=== PATIENT | female | born 2000 | race Caucasian/White ===

== ENCOUNTER → 2018-03-16 | Emergency (ER) | payer OTHER ==
[~2018-03-16] VITALS: Ht 157.5 cm; Wt 74.4 kg
== END | disposition home or self-care (01) ==
LOC: ER 16:36
DX: S20.312A Abrasion of left front wall of thorax, initial encounter (principal); S20.311A Abrasion of right front wall of thorax, initial encounter; W45.8XXA Other foreign body or object entering through skin, initial encounter; Y93.89 Activity, other specified; Y92.89 Other specified places as the place of occurrence of the external cause; Y99.8 Other external cause status

== ENCOUNTER 2025-04-25 20:13 | Inpatient (IN) | payer OTHER ==
[~2025-04-25] VITALS: Ht 157.5 cm; Wt 90.7 kg
[2025-04-25] MEDS ORDERED: PRENATAL TABLE1 EAC4 PO (20:42)
[2025-05-16 00:11] VITALS: BP 121/59
[2025-05-16] MEDS ORDERED: RINGERS SOLUTION,LACTATED 1,000 ML IV SCH (00:45)
[2025-05-16] MEDS ORDERED: MORPHINE SULFATE 4 MG/ML CARTRIDGE IV PRN (00:45)
[2025-05-16 03:38] VITALS: BP 135/77
[2025-05-16 07:29] VITALS: BP 148/88
[2025-05-16] MEDS ORDERED: OXYTOCIN 500 ML IV ONE (09:30)
[2025-05-16] MEDS ORDERED: CITRIC ACID/SODIUM CITRATE 30 ML BLIST.PACK PO ONE (11:45)
[2025-05-16] MEDS ORDERED: CEFAZOLIN SODIUM 1,000 MG VIAL IV ONE (11:45)
[2025-05-16] MEDS ORDERED: METOCLOPRAMIDE HCL 5 MG/ML VIAL IV ONE (11:45)
[2025-05-16 17:23] VITALS: BP 134/72
[2025-05-16 20:31] VITALS: BP 146/86
[2025-05-16 23:51] VITALS: BP 135/79
[2025-05-17 04:00] VITALS: BP 138/88
[2025-05-17] MEDS ORDERED: KETOROLAC TROMETHAMINE 30 MG VIAL IV NR (05:30)
[2025-05-17] MEDS ORDERED: MORPHINE SULFATE 4 MG/ML CARTRIDGE IV PRN (05:30)
[2025-05-17] MEDS ORDERED: KETOROLAC TROMETHAMINE 30 MG VIAL IV SCH (06:00)
[2025-05-17] MEDS ORDERED: ACETAMINOPHEN 325 MG TABLET PO SCH (06:00)
[2025-05-17 06:51] LABS: BASO % 0.2 % (0.1-1.2); EOS # 0.02 (0.04-0.54); EOS % 0.1 % (0.7-7.0); LYMPH # 1.26 (1.18-3.74); LYMPH % 7.3 % (19.3-53.1); MEAN PLATELET VOLUME 11.00 fl (9.4-12.4); MONO # 1.75 (0.24-0.82); MONO % 10.2 % (4.7-12.5); NEUT # 14.06 (1.56-6.13); NEUT % 81.6 % (34.0-71.1); RED CELL DISTRIBUTION WIDTH 13.2 % (11.6-14.4)
[2025-05-17 08:57] VITALS: BP 136/88
[2025-05-17 15:40] VITALS: BP 130/79
[2025-05-17] MEDS ORDERED: SIMETHICONE 125 MG CAPSULE PO SCH (17:00)
[2025-05-17 19:00] VITALS: BP 135/83
[2025-05-18 01:00] VITALS: BP 129/86
[2025-05-18 06:00] VITALS: BP 117/76
[2025-05-18] MEDS ORDERED: OxyCODONE HCL 5 MG TABLET (ROXICODONE) PO PRN (06:00)
[2025-05-18 08:34] VITALS: BP 129/80
== END 2025-05-18 10:44 | disposition home or self-care (01) | DRG 788 ==
LOC: LDR 20:13 → OB/GYN 05-16 00:31 → O/R 05-16 14:30 → OB/GYN 05-16 14:52
PROVIDERS: Obstetrics & Gynecology; ADMIT Obstetrics & Gynecology Gynecology; ATTEND Obstetrics & Gynecology Gynecology
PROC: 4A1HXCZ Monitoring of Products of Conception, Cardiac Rate, External Approach (ICD-10-PCS; 2025-05-16)
PROC: 10D00Z1 Extraction of Products of Conception, Low, Open Approach (ICD-10-PCS; principal; 2025-05-16 11:00)
DX: O33.8 Maternal care for disproportion of other origin (principal); Z3A.38 38 weeks gestation of pregnancy; Z37.0 Single live birth

== ENCOUNTER 2025-04-25 20:26 | Outpatient (CLI) | payer OTHER ==
[2025-04-25 18:57] VITALS: BP 127/71
[2025-04-25] MEDS ORDERED: PRENATAL TABLE1 EAC4 PO (20:42)
[2025-04-25] MEDS ORDERED: RINGERS SOLUTION,LACTATED 1,000 ML IV SCH (20:45)
[2025-04-25] MEDS ORDERED: FAMOTIDINE/PF 20 MG/2 ML VIAL IV PUSH ONE (20:45)
[2025-04-25] MEDS ORDERED: MAGNESIUM SULFATE IN WATER 500 ML IV SCH (20:45)
[2025-04-25] MEDS ORDERED: PROMETHAZINE HCL 25 MG/ML AMPUL IV ONE (20:45)
[2025-04-25] MEDS ORDERED: MAGNESIUM SULFATE IN WATER 4 GM/100 ML PIGGYBACK IV ONE (20:45)
[2025-04-25 21:15] LABS: BASO % 0.2 % (0.1-1.2); EOS # 0.08 (0.04-0.54); EOS % 0.8 % (0.7-7.0); HEMOGLOBIN 12.5 g/dL (11.2-15.7); LYMPH # 1.54 (1.18-3.74); LYMPH % 15.7 % (19.3-53.1); MEAN CORPUSCULAR HEMOGLOBIN 27.9 pg (25.6-32.2); MONO # 0.88 (0.24-0.82); NEUT # 7.21 (1.56-6.13); NEUT % 73.5 % (34.0-71.1); PLATELET COUNT 227 K/uL (163-369); RED BLOOD COUNT 4.48 M/uL (3.93-5.22); RED CELL DISTRIBUTION WIDTH 12.8 % (11.6-14.4)
[2025-04-25 21:16] LABS: PH,URINE 7.5 (5.0-8.0); URINE APPEARANCE Clear; URINE BILIRRUBIN Negative (NEGATIVE); URINE BLOOD Negative; URINE COLOR Yellow; URINE GLUCOSE Negative (NEGATIVE); URINE KETONE Negative (NEGATIVE); URINE LEUKOCYTE Small; URINE NITRATE Negative; URINE PROTEIN Negative (NEGATIVE); URINE UROBILINOGEN 0.2 E.U./dl
[2025-04-25 21:20] LABS: URINE BACTERIA 1587.4 uL (0.0-1933); URINE EPITHELIAL CELLS 32.1 uL (0.0-38.8); URINE WBC 12.6 uL (0.0-23.2)
[2025-04-25 21:28] LABS: URINE CAST 0.29 uL (0.0-1.40)
[2025-04-25 21:38] LABS: INR 0.96; PARTIAL THROMBOPLASTIN TIME 25.1 SECONDS (22.0-34.0); PROTHROMBIN TIME 10.5 SECONDS (9.0-11.5)
[2025-04-25 21:42] LABS: ALBUMIN 2.7 gm/dL (3.4-5.0); BILIRUBIN TOTAL 0.23 mg/dL (0.3-1.2); CALCIUM 8.8 mg/dL (8.5-10.1); CREATININE SERUM 0.46 mg/dL (0.55-1.02); GFR 164.2; GLOBULINA 3.4 G/DL (2.4-3.5); POTASSIUM 3.8 mEq/L (3.5-5.1); TOTAL PROTEIN 6.1 gm/dL (6.4-8.2)
[2025-04-25] MEDS ORDERED: PROMETHAZINE HCL 25 MG/ML AMPUL IV PRN (22:30)
[2025-04-25 23:16] VITALS: BP 96/62
[2025-04-26 03:42] VITALS: BP 94/64
[2025-04-26 06:16] VITALS: BP 96/59; O2SAT 97
[2025-04-26 10:18] VITALS: BP 96/59
== END 2025-04-26 10:39 | disposition home or self-care (01) ==
LOC: OBS/DEL 20:26
PROVIDERS: ATTEND Obstetrics & Gynecology Gynecology
DX: O26.893 Other specified pregnancy related conditions, third trimester (principal); Z3A.35 35 weeks gestation of pregnancy; R11.10 Vomiting, unspecified

== ENCOUNTER 2025-05-12 10:23 | Outpatient (CLI) | payer OTHER ==
[~2025-05-12 10:23] MED LIST: PRENATAL TABLE1 EAC4 PO
== END 2025-05-12 11:33 | disposition home or self-care (01) ==
LOC: NST 10:23
PROVIDERS: ATTEND Obstetrics & Gynecology Maternal & Fetal Medicine
DX: Z34.83 Encounter for supervision of other normal pregnancy, third trimester (principal)

== ENCOUNTER 2025-05-13 17:30 | Outpatient (CLI) | payer OTHER ==
[~2025-05-13] VITALS: Ht 157.5 cm; Wt 90.7 kg
[2025-05-13 17:07] VITALS: BP 132/76
[2025-05-13] MEDS ORDERED: RINGERS SOLUTION,LACTATED 1,000 ML IV SCH (17:45)
[2025-05-13 18:30] LABS: BASO % 0.2 % (0.1-1.2); EOS # 0.03 (0.04-0.54); EOS % 0.3 % (0.7-7.0); LYMPH # 0.88 (1.18-3.74); LYMPH % 7.8 % (19.3-53.1); MEAN PLATELET VOLUME 11.00 fl (9.4-12.4); MONO # 0.83 (0.24-0.82); MONO % 7.3 % (4.7-12.5); NEUT # 9.48 (1.56-6.13); NEUT % 83.7 % (34.0-71.1); RED CELL DISTRIBUTION WIDTH 12.8 % (11.6-14.4)
[2025-05-13 18:49] LABS: INR 0.95
[2025-05-13 18:55] LABS: ALT/SGPT 21.0 U/L (12-78); AST/SGOT 20.0 U/L (15-37); BILIRUBIN TOTAL 0.42 mg/dL (0.3-1.2); BUN CREA RATIO 14.0 (7.0-25.0); CREATININE SERUM 0.63 mg/dL (0.55-1.02); GFR 114.23; GLOBULINA 3.4 G/DL (2.4-3.5); GLUCOSE FASTING 76.0 mg/dL (65-100); OSMOLALITY SERUM 282.0 MOSM/KG (275-295)
[2025-05-13 19:58] VITALS: BP 126/73
[2025-05-13 23:33] VITALS: BP 131/66
[2025-05-14 04:13] VITALS: BP 128/60
[2025-05-14 07:27] VITALS: BP 139/77
== END 2025-05-14 09:43 | disposition home or self-care (01) ==
LOC: OBS/DEL 17:30 → LDR 17:30 → OB/GYN 17:30 → LDR 05-14 09:43 → OBS/DEL 05-14 09:43 → EDSTATUS 05-25 09:00 → OB/GYN 05-25 14:39
PROVIDERS: Obstetrics & Gynecology Maternal & Fetal Medicine; ATTEND Obstetrics & Gynecology Gynecology
DX: O47.03 False labor before 37 completed weeks of gestation, third trimester (principal); Z3A.38 38 weeks gestation of pregnancy; R10.2 Pelvic and perineal pain